=== PATIENT | female | born 1995 | race Caucasian/White ===

== ENCOUNTER 2017-01-01 00:03 | Emergency (ER) | payer MEDICAID ==
[~2017-01-01] VITALS: Ht 172.7 cm; Wt 77.1 kg
--- NOTE | 2017-01-01 00:05 | NUR ---
PT.BIB PD TO ER OF2
[2017-01-01 00:08] VITALS: BP 115/66
--- NOTE | 2017-01-01 00:10 | NUR ---
21Y/F BIB PD TO ED FOR PREBOOK; SKIN IS PINK/WARM/DRY; AAOX4 WITH EVEN AND STEADY GAIT; LUNGS CLEAR BL; HR EVEN AND REGULAR; PT DENIES ANY FEVER, CP, SOB, OR COUGH AT THIS TIME; PATIENT STATES PAIN OF 0/10 AT THIS TIME; VSS; ER MD MADE AWARE OF PT STATUS.
--- NOTE | 2017-01-01 00:30 | NUR ---
Patient being evaluated by DR. THOMPSON at bedside.
--- NOTE | 2017-01-01 00:48 | NUR ---
PATIENT BIB [employer]. PATIENT EXAMINED BY DR. LANE. PATIENT MEDICALLY CLEARED AND RELEASED IN CUSTODY IN STABLE CONDITION. ORIGINAL PRE-BOOK FORM GIVEN TO [employer].
[2017-01-01 00:58] VITALS: BP 115/66
== END 2017-01-01 00:48 ==
LOC: MED 00:03
CPT/HCPCS: 99283